=== PATIENT | male | born 1995 | race African-American/Black ===

== ENCOUNTER 2022-11-26 18:29 | Emergency (ER) | payer BC, MEDICAID, SELFPAY ==
--- NOTE | ~2022-11-26 | CT_ITS ---
Non-contrast Head CT History: Right periorbital pain, headache Technique: Axial non-contrast imaging of the brain was performed. Dose reduction technique was used on this scan by utilizing automated exposure control and iterative reconstruction technique. The dose -length product (DLP) was 681.00 mGy-cm. Findings: There is no evidence of intracranial hemorrhage, mass lesion, or acute infarct. Brain par enchyma appears normal. The ventricles and subarachnoid spaces are normal in size. The calvarium ap pears normal. The visualized paranasal sinuses and mastoid air cells are clear. Impression: No significant abnormality seen. Reviewed, dictated and finalized at location . Impression: No significant abnormality seen.
--- NOTE | ~2022-11-26 | XR_ITS ---
EXAMINATION: XR chest 2V Exam Date/Time: 11/26/2022 18:50 CDT HISTORY: chest pain Comparison: None. RESULT: Lines, tubes, and devices: None. Lungs and pleura: Clear. Cardiomediastinal silhouette: Normal. Other: No acute osseous or upper abdominal finding. IMPRESSION: No acute cardiopulmonary process. Reviewed, dictated and finalized at location K.
--- NOTE | 2022-11-26 18:31 | ECG_ITS ---
Measurements Intervals [place] Rate: 65 P: 86 [place]: 153 QRS: 87 QRSD: 98 T: 52 QT: 363 QTc: 378 Interpretive Statements SINUS RHYTHM EARLY REPOLARIZATION OTHERWISE NORMAL ECG NO PREVIOUS ECG AVAILABLE FOR COMPARISON Electronically Signed On 11-27-2022 9:16:06 CDT by Ilan Solo M.D.
[2022-11-26 18:39] VITALS: BP 113/81; PULSE 78; RESP 18; TEMP 36.6; O2SAT 100
[2022-11-26 18:56] LABS: Basophils Percent Auto 0.6 % (0.2-1.2); Eosinophils Percent Auto 1.2 % (0-4.4); Hemoglobin 13.5 g/dL (14.0-18.0); Lymphocytes Absolute Auto 1.37 K/mm3 (0.9-3.2); Mean Corpuscular HGB Conc 33.8 g/dl (32-36); Mean Corpuscular Hemoglobin 29.5 pg (26-34); Mean Corpuscular Volume 87.3 fl (80-100); Mean Platelet Volume 10.3 fl (7.4-10.4); Monocytes Absolute Auto 0.2 K/mm3 (0.1-0.6); Monocytes Percent Auto 6.6 % (2.6-8.5); Neutrophils Absolute Auto 1.7 K/mm3 (1.3-6.7); Neutrophils Percent Auto 50.6 % (45.5-73.1); Platelet Count Result 216 k/mm3 (150-375); Red Blood Count 4.58 M/mm3 (4.6-6.20); White Blood Count 3.3 K/mm3 (4.5-10.0)
[2022-11-26 19:06] LABS: Alanine Aminotransferase 27 U/L (6-50); Albumin Level 4.2 g/dL (3.5-5.1); Alkaline Phosphatase 80 U/L (38-126); Anion Gap 8 mmol/L (8-16); Aspartate Amino Transferase 29 U/L (17-59); Bilirubin,Total 0.3 mg/dL (0.2-1.3); Blood Urea Nitrogen 6 mg/dL (9-20); Calcium 9.5 mg/dL (8.4-10.2); Carbon Dioxide 25 mmol/L (22-30); Chloride 105 mmol/L (98-107); Estimated CRCL calculation 125 ml/min; Estimated Glomerular Filt Rate > 60; Glucose 99 mg/dL (65-110); INR 1.1; Lipase 86 U/L (23-300); Prothrombin Time 14.7 Seconds (11.1-14.7); Sodium 138 mmol/L (137-145)
[2022-11-26 19:07] LABS: Partial Thromboplastin Time 32.3 SECONDS (22.3-36.8)
[2022-11-26 19:16] LABS: Troponin I < 0.012 ng/mL (0.000-0.034)
--- NOTE | 2022-11-26 22:07 | ECG_ITS ---
Measurements Intervals [place] Rate: 92 P: 82 [place]: 145 QRS: 92 QRSD: 89 T: -12 QT: 331 QTc: 410 Interpretive Statements SINUS RHYTHM WITH SINUS ARRHYTHMIA BORDERLINE RIGHT AXIS DEVIATION [QRS AXIS > 90] NONSPECIFIC T-WAVE ABNORMALITY ABNORMAL ECG COMPARED TO ECG 11/26/2022 18:35:31 SINUS ARRHYTHMIA NOW PRESENT T-WAVE ABNORMALITY NOW PRESENT Electronically Signed On 11-27-2022 9:17:39 CDT by Ilan Solo M.D.
[2022-11-26 22:24] VITALS: BP 157/95; PULSE 108; RESP 16; TEMP 36.7; O2SAT 100
[2022-11-26 22:49] LABS: Troponin I < 0.012 ng/mL (0.000-0.034)
[2022-11-26 23:27] VITALS: BP 130/83; PULSE 59; RESP 15; TEMP 37.2; O2SAT 100
[2022-11-26 23:28] VITALS: PULSE 61
--- NOTE | 2022-11-27 02:20 | ED.CHESTPAIN ---
HPI - Chest Pain General Chief Complaint: Chest Pain Stated Complaint: chest pain Time Seen by Provider: 11/27/22 00:11 Source: patient Mode of arrival: ambulatory Limitations: no limitations History of Present Illness HPI narrative: Patient is a 27-year-old male who presents to the ED with multiple complaints. Patient reports having ongoing issues with right-sided headaches extending into his periorbital region for the last several months. He states the pain is constant but he has worsening episodes with eating or drinking anything. He says he recently moved here from [place] and has been worked up for these headaches extensively there. He has been on several different headache medications without improvement. He took Tylenol and ibuprofen today without improvement. Patient states when he experiences these episodes of headaches, he feels a sour sensation to the right side of his nose, and he begins to have a warm sensation in his abdomen, chest pain, palpitations, nausea, intermittent blurred vision. His initial complaint when he came to the ED today was chest pain. He denies any chest pain upon my evaluation. Related Data Allergies Allergy/AdvReac Type Severity Reaction Status Date / Time iodine AdvReac Vomiting Verified 11/26/22 18:30 shellfish derived AdvReac Vomiting Verified 11/26/22 18:30 Review of Systems Review of Systems: CONSTITUTIONAL: Denies fever, chills, or sweats. EYES: See HPI. ENT: Denies rhinorrhea, congestion, sore throat, or otalgia. CARDIOVASCULAR: See HPI. RESPIRATORY: Denies cough or dyspnea. GASTROINTESTINAL: See HPI. GENITOURINARY: Denies dysuria or hematuria. SKIN: Denies rash or itching. MUSCULOSKELETAL: Denies back pain, joint pain, or myalgia. NEUROLOGIC: HPI. All systems reviewed & are unremarkable except as noted in HPI and below Exam Narrative: GENERAL: Well appearing, well-nourished, non-toxic, in no acute distress. HEAD: Normocephalic, atraumatic. EYES: PERRLA/EOMI, conjunctiva clear. No nystagmus. NECK: Supple. No adenopathy, no masses. No meningeal signs. RESPIRATORY: Airway patent, respirations nonlabored. Clear to auscultation bilaterally, no rales, rhonchi, wheezing. CARDIOVASCULAR: Regular rate and rhythm without murmurs, rubs, or gallops. Peripheral pulses 2+ and equal bilaterally. ABDOMINAL: Soft, nontender, nondistended, no hepatosplenomegaly. Normoactive BS. MUSCULOSKELETAL: Moves all extremities. Strength/ROM intact without gross deformities. SKIN: Warm, dry, normal color. No rashes. NEURO: A&O X3. Speech clear. Cranial nerves II-XII grossly intact. Steady gait. Mildly tremulous. No ataxic movements. PSYCHIATRIC: Anxious, somewhat paranoid, rambling. Normal interaction. Course Vital Signs Vital signs: Vital Signs Temperature 97.8 F 11/26/22 18:39 Pulse Rate 78 11/26/22 18:39 Respiratory Rate 18 11/26/22 18:39 Blood Pressure 113/81 11/26/22 18:39 Pulse Oximetry 100 11/26/22 18:39 Oxygen Delivery Room Air 11/26/22 18:39 Temperature 98.9 F 11/26/22 23:27 Pulse Rate 52 L 11/27/22 04:09 Respiratory Rate 14 11/27/22 04:09 Blood Pressure 101/53 L 11/27/22 04:09 Pulse Oximetry 100 11/27/22 04:09 Oxygen Delivery Room Air 11/26/22 18:39 MDM - Chest Pain MDM Narrative Medical decision making narrative: Patient presented to ED with several month history of headaches, intermittent episodes of chest pain, palpitations. Patient's vitals stable upon arrival. EKGs performed in triage without concerning ST changes. Troponin negative x2. Patient low risk for ACS, HEART score = 0. Chest x-ray clear. No signs or symptoms of DVT. PERC negative. Neurologically intact on exam, no focal deficits. Will obtain CT brain d/t prolonged nature of headaches. Basic laboratory studies unremarkable. No leukocytosis. No significant electrolyte abnormality. I attempted to give patient migraine cocktail. He states he has tried numerous c
[2022-11-27] MEDS: ACETAMINOPHEN 500 MG TABLET 1000 MG PO (02:56)
[2022-11-27] MEDS: SODIUM CHLORIDE 0.9% IV 1,000 ML 999 ML IV CONT (02:56)
[2022-11-27 03:22] LABS: Appearance Urine Clear (Clear); Bilirubin Urine Negative (Negative); Blood Urine Negative (Negative); Color Urine Yellow (Yellow); Glucose Urine UA Negative (Negative); Ketones Urine Negative (Negative); Leukocyte Esterase Ur Negative LEU/UL (Negative); Nitrate Urine Negative (Negative); Protein Urine Negative (Negative); Specific Grav Ur 1.012 (1.001-1.035); Urobilinogen Urine 0.2 mg/dL (<2.0); pH Urine 8.5 (5.0-9.0)
[2022-11-27 03:23] LABS: Add Urine Microscopic? NO
[2022-11-27 03:36] LABS: Amphetamine Screen Urine Negative (Negative); Barbiturate Screen Urine Negative (Negative); Benzodiazepines Screen Urine Negative (Negative); Cannabinoid Screen Urine Negative (Negative); Cocaine Screen Urine Negative (Negative); Methadone Screen Urine Negative (Negative); Opiate Screen Urine Negative (Negative); Phencyclidine Screen Urine Negative (Negative)
[2022-11-27 04:09] VITALS: BP 101/53; PULSE 52; RESP 14; O2SAT 100
[2022-11-27] MEDS: KETOROLAC 30 MG/ML VIAL (*BKC) IV PUSH (04:59)
[2022-11-27 05:22] VITALS: BP 103/70; PULSE 54; RESP 15; O2SAT 100
[2022-11-27 09:41] LABS: Bacteria Urine None Seen /hpf; Non Pathogenic Casts 0-2; RBC Urine 0-2 /hpf (0-2); Squamous Epithelial Cell Urine None seen /hpf (Few); WBC Urine 0-5 /hpf
== END 2022-11-27 05:25 | disposition home or self-care (01) ==
PROVIDERS: Student in an Organized Health Care Education/Training Program; Emergency Provider Physician Assistant
DX: R51.9 Headache, unspecified (principal); R07.89 Other chest pain; R94.31 Abnormal electrocardiogram [ECG] [EKG]
CPT/HCPCS: 36415; 70450; 71046; 80053; 80307; 81003; 83690; 84484; 85025; 85610; 85730; 93005; 96361; 96374; 99284; A9270; J1885; J7030

== ENCOUNTER 2023-01-08 12:59 | Emergency (ER) | payer BC, SELFPAY ==
--- NOTE | ~2023-01-08 | XR_ITS ---
Clinical Indication: Chest pain PA and lateral views of the chest: Comparison: 11/26/2022 Findings: The lungs are clear, without evidence of focal consolidation or pleural effusion. Cardiome diastinal silhouette is within normal limits. Bones and soft tissues are unremarkable. Impression: Normal chest. Reviewed, dictated and finalized at location . Impression: Normal chest.
[2023-01-08 12:58] VITALS: BP 117/67; PULSE 63; RESP 13; TEMP 37.1; O2SAT 100
[2023-01-08 13:00] VITALS: BP 117/67; PULSE 55; RESP 20; O2SAT 100
--- NOTE | 2023-01-08 13:03 | ECG_ITS ---
Measurements Intervals [place] Rate: 54 P: 76 [place]: 140 QRS: 78 QRSD: 94 T: 69 QT: 415 QTc: 396 Interpretive Statements SINUS BRADYCARDIA EARLY REPOLARIZATION [ST ELEVATION WITH NORMALLY INFLECTED T WAVE] ABNORMAL ECG COMPARED TO ECG 11/26/2022 22:14:35 SINUS BRADYCARDIA NOW PRESENT Electronically Signed On 01-08-2023 15:45:11 CDT by Ilan Solo M.D.
[2023-01-08 13:19] VITALS: BP 119/85; PULSE 53; RESP 19; O2SAT 100
--- NOTE | 2023-01-08 13:32 | ED.CHESTPAIN ---
HPI - Chest Pain General Chief Complaint: Chest Pain Stated Complaint: CP & GIPSON x 2 weeks Time Seen by Provider: 01/08/23 13:22 History of Present Illness HPI narrative: 27-year-old male presents to the emergency room with multiple complaints. Patient states that he has been dealing with inspiratory chest pain and headaches for several years. Patient has been evaluated here in October for similar symptoms and has been to multiple emergency room's for these complaints. Patient states the chest pain is worse with inspiration. Has taken Tylenol and ibuprofen with no improvement of symptoms. Patient also complains of a photosensitive headache which does not improve with Tylenol and ibuprofen. Denies any dizziness lightheadedness or altered mental status. Denies any injury or trauma. Related Data Allergies Allergy/AdvReac Type Severity Reaction Status Date / Time iodine AdvReac Vomiting Verified 01/08/23 13:17 shellfish derived AdvReac Vomiting Verified 01/08/23 13:17 Review of Systems Review of Systems: CONSTITUTIONAL: Denies fever, chills, or sweats. EYES: Denies visual changes, redness, or discharge. ENT: Denies rhinorrhea, congestion, sore throat, or otalgia. CARDIOVASCULAR: Reports chest pain RESPIRATORY: Denies cough or dyspnea. GASTROINTESTINAL: Denies abdominal pain, nausea, vomiting, or diarrhea. GENITOURINARY: Denies dysuria or hematuria. SKIN: Denies rash or itching. MUSCULOSKELETAL: Denies back pain, joint pain, or myalgia. NEUROLOGIC: Reports headache PSYCHIATRIC: Denies anxiety or depression. Exam Narrative: GENERAL: Well-appearing, well-nourished, no physical limitations, and in no acute distress. HEAD: Normocephalic, atraumatic. EYES: Conjunctivae normal, PERRLA and EOMI. CHEST: Clear to auscultation. No respiratory distress. No wheezes rales or rhonchi. No tenderness. HEART: Regular rate and rhythm. No murmur heard. Normal peripheral pulses. ABDOMEN: Soft, nontender, nondistended, normal active bowel sounds. EXTREMITIES: Normal range of motion. No edema. No clubbing or cyanosis SKIN: Warm, dry, no rash. No noted wounds NEURO: No focal deficits. Alert and oriented x3. MAEW. CN's II-XI intact bilaterally, normal gait PSYCH: Cooperative. Normal mood and affect. Course Vital Signs Vital signs: Vital Signs Temperature 37.1 C 01/08/23 12:58 Pulse Rate 63 01/08/23 12:58 Respiratory Rate 13 01/08/23 12:58 Blood Pressure 117/67 01/08/23 12:58 Pulse Oximetry 100 01/08/23 12:58 Oxygen Delivery Room Air 01/08/23 12:58 Temperature 37.1 C 01/08/23 12:58 Pulse Rate 63 01/08/23 12:58 Respiratory Rate 13 01/08/23 12:58 Blood Pressure 117/67 01/08/23 12:58 Pulse Oximetry 100 01/08/23 12:58 Oxygen Delivery Room Air 01/08/23 12:58 MDM - Chest Pain MDM Narrative Medical decision making narrative: 27-year-old male presented to the emergency room complaints of a headache and chest pain has been present for several years. Vitals were stable during his course. Labs are unremarkable. Chest x-ray showed no acute cardiopulmonary disease. EKG showed no ischemic changes. A single troponin was negative. Heart score is 0. Patient was neurologically intact with no focal deficits. Lab Data 01/08/23 13:26 01/08/23 13:26 Labs: Lab Results 01/08/23 Range/Units 13:26 WBC Pending RBC Pending Hgb Pending Hct Pending MCV Pending MCH Pending MCHC Pending RDW Pending Plt Count Pending MPV Pending Immature Gran % (Auto) Pending Neut % (Auto) Pending Lymph % (Auto) Pending [place] % (Auto) Pending Eos % (Auto) Pending Baso % (Auto) Pending Lymph # (Auto) Pending [place] # (Auto) Pending Eos # (Auto) Pending Baso # (Auto) Pending Abs Immat Gran (auto) Pending Absolute Neuts (auto) Pending Absolute Nucleated RBC Pending Nucleated RBC % Pending PT Pending INR Pen
[2023-01-08 13:33] LABS: Basophils Percent Auto 0.6 % (0.2-1.2); Eosinophils Percent Auto 1.3 % (0-4.4); Hematocrit 39.6 % (42.0-52.0); Hemoglobin 13.3 g/dL (14.0-18.0); Lymphocytes Absolute Auto 1.32 K/mm3 (0.9-3.2); Lymphocytes Percent Auto 42.7 % (18.3-44.2); Mean Corpuscular HGB Conc 33.6 g/dl (32-36); Mean Corpuscular Hemoglobin 29.6 pg (26-34); Mean Corpuscular Volume 88.2 fl (80-100); Mean Platelet Volume 10.6 fl (7.4-10.4); Monocytes Absolute Auto 0.2 K/mm3 (0.1-0.6); Monocytes Percent Auto 6.8 % (2.6-8.5); Neutrophils Absolute Auto 1.5 K/mm3 (1.3-6.7); Neutrophils Percent Auto 48.6 % (45.5-73.1); Platelet Count Result 208 k/mm3 (150-375); Red Blood Count 4.49 M/mm3 (4.6-6.20); Red Cell Distribution Width 11.6 % (11.5-14.5); White Blood Count 3.1 K/mm3 (4.5-10.0)
[2023-01-08 13:45] LABS: INR 1.2; Prothrombin Time 15.3 Seconds (11.1-14.7)
[2023-01-08 13:46] LABS: Partial Thromboplastin Time 31.9 SECONDS (22.3-36.8)
[2023-01-08] MEDS: SODIUM CHLORIDE 0.9% IV 1,000 ML 999 ML IV CONT (13:52)
[2023-01-08 13:55] LABS: Alanine Aminotransferase 22 U/L (6-50); Albumin Level 4.4 g/dL (3.5-5.1); Alkaline Phosphatase 72 U/L (38-126); Anion Gap 7 mmol/L (8-16); Aspartate Amino Transferase 26 U/L (17-59); Bilirubin,Total 0.7 mg/dL (0.2-1.3); Blood Urea Nitrogen 13 mg/dL (9-20); CRP < 0.5 mg/dL (<1.0); Calcium 9.1 mg/dL (8.4-10.2); Carbon Dioxide 25 mmol/L (22-30); Chloride 105 mmol/L (98-107); Estimated CRCL calculation 99 ml/min; Estimated Glomerular Filt Rate > 60; Glucose 82 mg/dL (65-110); Lipase 150 U/L (23-300); Sodium 137 mmol/L (137-145)
[2023-01-08 13:56] LABS: Troponin I < 0.012 ng/mL (0.000-0.034)
--- NOTE | 2023-01-08 13:58 | PC.NURSE ---
patient refuses all medications except NS d/t the side effects. provider aware
[2023-01-08 14:01] LABS: D Dimer < 0.27 ug/mL (<0.48)
[2023-01-08 14:49] VITALS: BP 114/74; PULSE 59; RESP 20; O2SAT 100
== END 2023-01-08 14:55 | disposition home or self-care (01) ==
PROVIDERS: Student in an Organized Health Care Education/Training Program; Emergency Provider Nurse Practitioner Family
DX: R07.89 Other chest pain (principal); R51.9 Headache, unspecified; R00.1 Bradycardia, unspecified
CPT/HCPCS: 36415; 71046; 80053; 83690; 84484; 85025; 85380; 85610; 85730; 86140; 93005; 96360; 96374; 99284; A9270; J1885; J7030

== ENCOUNTER 2023-01-08 20:43 | Emergency (ER) | payer BC, SELFPAY ==
[2023-01-08] VITALS (15 sets, daily range): BP systolic 101–115; BP diastolic 66–79; PULSE 50–69; RESP 12–22; TEMP 36.4–36.6; O2SAT 98–100
[2023-01-08] MEDS: KETOROLAC 30 MG/ML VIAL (*BKC) IV PUSH (22:59)
[2023-01-08] MEDS: SODIUM CHLORIDE 0.9% IV 1,000 ML 999 ML IV CONT (23:00)
--- NOTE | 2023-01-08 23:35 | ED.GENADULT ---
HPI - General Adult General Chief complaint: Headache Stated complaint: headache Time Seen by Provider: 01/08/23 22:13 History of Present Illness HPI narrative: Patient is a 27-year-old gentleman who presents the emergency department with chief complaint of headache. Patient reports he has history of migraines patient reports this is his typical migraine reports he was seen earlier today but did not want to do the antiemetics for his headache and reports that the symptoms have returned. Patient reports that he had photophobia with this reports this is unchanged from his previous episodes. Patient reports no new neurological symptoms Related Data Allergies Allergy/AdvReac Type Severity Reaction Status Date / Time iodine AdvReac Vomiting Verified 01/08/23 13:17 shellfish derived AdvReac Vomiting Verified 01/08/23 13:17 Review of Systems Review of Systems: A 10 system review of systems was completed on the patient and is negative except for what is stated in the HPI. Nursing and ancillary documentation was reviewed. Exam Narrative: GENERAL: Well-appearing, well-nourished, and in no acute distress. HEAD: Normocephalic, atraumatic. EYES: PERRLA and EOMI. ENT: Nares clear, no rhinorrhea or epistaxis. Mucous membranes moist. NECK: Supple. CHEST: Clear to auscultation. No respiratory distress. HEART: Regular rate and rhythm. No murmur heard. Normal peripheral pulses. ABDOMEN: Soft, nontender, nondistended, normal active bowel sounds. EXTREMITIES: Normal range of motion. No edema. SKIN: Warm, dry, no rash. NEURO: No focal deficits. Alert and oriented x3. PSYCH: Normal mood and affect. Course Vital Signs Vital signs: Vital Signs Temperature 36.4 C 01/08/23 20:45 Pulse Rate 69 01/08/23 20:45 Respiratory Rate 16 01/08/23 20:45 Blood Pressure 115/79 01/08/23 20:45 Pulse Oximetry 100 01/08/23 20:45 Oxygen Delivery Room Air 01/08/23 20:45 Temperature 36.6 C 01/08/23 21:57 Pulse Rate 64 01/08/23 23:03 Respiratory Rate 18 01/08/23 23:03 Blood Pressure 106/74 01/08/23 23:03 Pulse Oximetry 100 01/08/23 23:03 Oxygen Delivery Room Air 01/08/23 20:45 Medical Decision Making MDM Narrative Medical decision making narrative: Differential diagnosis includes migraine headache, tension headache, Vital Signs Vital Signs: Vital Signs Temperature 36.4 C 01/08/23 20:45 Pulse Rate 69 01/08/23 20:45 Respiratory Rate 16 01/08/23 20:45 Blood Pressure 115/79 01/08/23 20:45 Pulse Oximetry 100 01/08/23 20:45 Oxygen Delivery Room Air 01/08/23 20:45 Temperature 36.6 C 01/08/23 21:57 Pulse Rate 64 01/08/23 23:03 Respiratory Rate 18 01/08/23 23:03 Blood Pressure 106/74 01/08/23 23:03 Pulse Oximetry 100 01/08/23 23:03 Oxygen Delivery Room Air 01/08/23 20:45 Discharge Plan Discharge Clinical Impression: Headache Patient Disposition: Home, Self-Care Condition: Stable Instructions: Antibiotic Form, Acute Headache (ED) Follow-up/Referrals: PHYSICIAN,SETUP TECHNICIAN [Primary Care Provider] - Iain Huitron MD [Physician] - Time of Disposition: 01:39
[2023-01-09] VITALS (7 sets, daily range): BP systolic 98–113; BP diastolic 60–70; PULSE 46–80; RESP 13–22; TEMP 36.7; O2SAT 100
[2023-01-09] MEDS: diphenhydrAMINE HCl CAP 25 MG CAPSULE 50 MG PO (01:18)
[2023-01-09] MEDS: METOCLOPRAMIDE HCL 10 MG TABLET PO (01:18)
== END 2023-01-09 01:58 | disposition home or self-care (01) ==
PROVIDERS: Emergency Provider Emergency Medicine
DX: R51.9 Headache, unspecified (principal)
CPT/HCPCS: 96360; 96374; 99284; A9270; J1885; J7030